=== PATIENT | female | born 2000 | race Caucasian/White ===

== ENCOUNTER 2024-03-25 16:55 | Emergency (ER) | payer MEDICAID, OTHER ==
[~2024-03-25] VITALS: Ht 165.1 cm; Wt 88.6 kg
[~2024-03-25 16:55] MED LIST: ALBU18HF12 IH
[2024-03-25 17:04] VITALS: BP 138/87; PULSE 103; RESP 20; TEMP 98
[2024-03-25] MEDS: ACETAMINOPHEN 500 MG TABLET PO ONE (17:18)
[2024-03-25] MEDS: GuaiFENesin/D-METHORPHAN [SUGAR-FREE] 200-20MG/10 ML SYRUP UDCUP PO ONE (17:18)
[2024-03-25 17:43] LABS: COVID AG,FIA SOURCE NASAL SWAB
[2024-03-25 18:16] LABS: SARS-COV2 (COVID) ANTIGEN,FIA Negative (Negative)
[2024-03-25 18:20] LABS: INFLUENZA TYPE A NEGATIVE FOR TYPE A (NEGATIVE); INFLUENZA TYPE B NEGATIVE FOR TYPE B (NEGATIVE)
[2024-03-25] MEDS ORDERED: GUAIFDM PO (19:19)
[2024-03-25] MEDS ORDERED: ACET-66 PO (19:19)
[2024-03-25] MEDS ORDERED: CEPH-558 PO (19:19)
== END 2024-03-25 19:37 | disposition home or self-care (01) ==
LOC: EMS 16:55
DX: H66.92 Otitis media, unspecified, left ear (principal); J06.9 Acute upper respiratory infection, unspecified; H10.89 Other conjunctivitis; J45.909 Unspecified asthma, uncomplicated; Z88.1 Allergy status to other antibiotic agents; Z20.822 Contact with and (suspected) exposure to COVID-19
CPT/HCPCS: 87804; 99283